=== PATIENT | male | born 1950 | race Caucasian/White ===

== ENCOUNTER 2018-02-01 10:42 | Emergency (ER) | payer OTHER ==
--- NOTE | 2018-02-01 12:02 | EDPHY ---
H & P Stated Complaint: SOB/weakness Time Seen by Provider: 02/01/18 11:28 HPI/ROS: CHIEF COMPLAINT: Shortness of breath HISTORY OF PRESENT ILLNESS: 67-year-old male presents with shortness of breath. Onset of shortness of breath yesterday at altitude. [place] to [place] yesterday. 1st noticed shortness of breath while carrying luggage up a flight of stairs. Last night he was unable to sleep because of orthopnea. Associated with multiple episodes of diarrhea and nausea. Now feels back to normal. No chest pain. REVIEW OF SYSTEMS: complete 10 point ROS negative except at noted in the HPI - Personal History Current Tetanus/Diphtheria Vaccine: Unsure - Medical/Surgical History Hx Asthma: No Hx Chronic Respiratory Disease: No Hx Diabetes: Yes Hx Cardiac Disease: Yes Hx Renal Disease: No Hx Cirrhosis: No Hx Alcoholism: No Other PMH: HTN, HLD, DM II, - Social History Smoking Status: Never smoked - Physical Exam Exam: General Appearance: Alert, pleasant Eyes: Pupils equal and round, no conjunctival pallor or injection ENT, Mouth: Mucous membranes moist Neck: Normal inspection Respiratory: Lungs are clear to auscultation Cardiovascular: Regular rate and rhythm Gastrointestinal: Abdomen is soft and nontender Neurological: A&O, nonfocal exam Skin: Warm and dry, no rash Extremities: 1+ pedal edema, no tenderness Psychiatric: Mood and affect normal Constitutional: Initial Vital Signs Temperature (C) 36.5 C 02/01/18 10:45 Heart Rate 78 02/01/18 10:45 Respiratory Rate 18 02/01/18 10:45 Blood Pressure 145/83 H 02/01/18 10:45 O2 Sat (%) 94 02/01/18 10:45 O2 Delivery Mode Room Air Allergies/Adverse Reactions: crab Allergy (Verified 02/01/18 10:51) shrimp Allergy (Verified 02/01/18 10:51) Home Medications: Medication Instructions Recorded Atorvastatin Calcium 02/01/18 Metoprolol Tartrate 02/01/18 Vitamin D3 02/01/18 Medical Decision Making - Diagnostics EKG Interpretation: EKG interpreted by me reveals normal sinus rhythm, rate 82, right bundle branch block. Interpretation: Abnormal EKG. Imaging Results: Chest X-Ray 02/01/18 11:56 Impression: Cardiac silhouette enlargement. Imaging: I viewed and interpreted images myself ED Course/Re-evaluation: This patient presents with shortness of breath at altitude. Since arrival back to [place], he feels back to normal and is not short of breath. Stat EKG reveals no evidence of ischemia or dysrhythmia. Initial troponin is negative. I feel that I can safely exclude acute coronary syndrome, given normal troponin and EKG, 12 hr after onset of shortness of breath. Chest x-ray reveals cardiomegaly; no old chest x-ray for comparison. BNP is slightly elevated, possibly consistent with mild CHF. The patient is asymptomatic at this elevation and O2 sat remains greater than 90% with ambulation. Will hold off on diuretics for now. Pt will stay at this elevation and will f/u cardiology. Differential Diagnosis: Differential diagnosis includes though it is not limited to pneumonia, pneumothorax, pulmonary embolism, aortic dissection, pericarditis, acute coronary syndrome. - Data Points Laboratory Results: Laboratory Results 02/01/18 11:45 02/01/18 11:45 Point of Care Test Results: Chemistry 02/01/18 12:00 POC Troponin I 0.01 ng/mL ng/mL (0.00-0.08) Departure - Departure Disposition: Home, Routine, Self-Care Clinical Impression: Dyspnea Qualifiers: Dyspnea type: shortness of breath Qualified Code(s): R06.02 - Shortness of breath; R06.00 - Dyspnea, unspecified; R06.01 - Orthopnea Condition: Fair Instructions: Dyspnea (ED) Additional Instructions: Return for worsening symptoms or any concerns. I advised to stay at this elevation and not go back to [place]. Referrals: John Scales MD [Medical Doctor] - 1-2 days without fail
[2018-02-01 12:04] LABS: PLATELET COUNT 221 10^3/uL (150-400)
--- NOTE | 2018-02-01 14:55 | CPEKG ---
Test Reason : OPEN Blood Pressure : / mmHG Vent. Rate : 082 BPM Atrial Rate : 082 BPM P-R Int : 146 ms QRS Dur : 119 ms QT Int : 426 ms P-R-T Axes : 037 005 015 degrees QTc Int : 498 ms Sinus rhythm Incomplete right bundle branch block Confirmed by Lulu Muller ([id number]) on 02/01/2018 2:55:02 PM Referred By: Confirmed By:Lulu Muller
[2018-02-01 15:10] VITALS: BP 145/89
== END 2018-02-01 15:20 | disposition home or self-care (01) ==
DX: R06.00 Dyspnea, unspecified (principal)
CPT/HCPCS: 84484-PO